=== PATIENT | female | born 1985 | race Two or more races ===

== ENCOUNTER 2024-02-19 07:48 | Emergency (ER) | payer OTHER ==
[~2024-02-19] VITALS: Ht 154.9 cm; Wt 61.0 kg
[2024-02-19 08:04] VITALS: BP 113/56
--- NOTE | 2024-02-19 08:18 | ED.PDOC ---
SOB-HPI HPI Comments A 38 YEAR OLD FEMALE PRESENTS TO THE ED WITH CHIEF COMPLAINT OF SOB. PATIENT REPORTS THAT SHE HAS BEEN EXPERIENCING A LINGERING COUGH AND SORE THROAT FOR ABOUT A MONTH, HOWEVER, SHE HAD STARTED TO EXPERIENCE SOB EARLIER TODAY, FEELING LIKE SHE COULD NOT BREATH. PATIENT RELAYS THAT SHE HAS HISTORY OF ASTHMA AND USED HER ALBUTEROL INHALER WITH NO RELIEF. PATIENT DENIES ANY CHEST PAIN, FEVER, CHILLS, DIZZINESS, HEADACHE, OR N/V/D. Chief Complaint: Asthma Time Seen by MD: 08:13 Reviewed notes: Nurses Notes, Medications, Allergies Information Source: Patient Mode of Arrival: Ambulatory Severity: Moderate Timing: Hours Duration: Since onset Context: At Rest PE Risk Factors: None History of: Asthma Prehospital treatment: Breathing Tx Modifying Factors: Nothing Associated Signs and Symptoms: Cough, Nasal Congestion, Sore Throat If cough with SOB: Non-Productive Past Medical History PAST MEDICAL HISTORY: Asthma Surgical History: Denies all surgeries DOCK SUPERINTENDENT History: No Pertinent DOCK SUPERINTENDENT History Family History Family History: Reviewed,noncontributory to illness Social History Smoker: Non-Smoker Alcohol: Denies ETOH Use Drugs: Denies Drug Use Lives In: Home Constitutional: denies: chills, diaphoresis, fatigue, fever, malaise, sweats, weakness, others EENTM: reports: nose congestion, throat pain, throat swelling; denies: blurred vision, double vision, ear bleeding, ear discharge, ear drainage, ear pain, ear ringing, eye pain, eye redness, hearing loss, mouth pain, mouth swelling, nasal discharge, nose bleeding, nose pain, photophobia, tearing, voice changes, others Respiratory: reports: cough, shortness of breath, wheezing; denies: hemoptysis, orthopnea, SOB at rest, SOB with excertion, stridor, others Cardiovascular: denies: chest pain, dizzy spells, diaphoresis, Dyspnea on exertion, edema, irregular heart beat, left arm pain, lightheadedness, palpitations, PND, syncope, others Gastrointestinal: denies: abdomen distended, abdominal pain, blood streaked bowels, constipated, diarrhea, dysphagia, difficulty swallowing, hematemesis, melena, nausea, poor appetite, poor fluid intake, rectal bleeding, rectal pain, vomiting, others Genitourinary: denies: abnormal vagina bleeding, burning, dyspareunia, dysuria, flank pain, frequency, hematuria, incontinence, pain, , vagina discharge, urgency, others Neurological: denies: dizziness, fainting, headache, left sided numbness, left sided weakness, numbness, paresthesia, pre-existing deficit, right sided numbness, right sided weakness, seizure, speech problems, tingling, tremors, weakness, others Musculoskeletal: denies: back pain, gout, joint pain, joint swelling, muscle pain, muscle stiffness, neck pain, others Integumetry: denies: bruises, change in color, change in hair/nails, dryness, laceration, lesions, lumps, rash, wounds, others Allergic/Immunocompromised: denies: Difficulty Healing, Frequent Infections, Hives, Itching, others Hematologic/Lymphatic: denies: anemia, blood clots, easy bleeding, easy bruising, swollen glands, others Endocrine: denies: excessive hunger, excessive sweating, excessive thirst, excessive urination, flushing, intolerance to cold, intolerance to heat, unexplained weight gain, unexplained weight loss, others Psychiatric: denies: anxiety, bipolar disorder, depression, hopeless, panic disorder, schizophrenia, sleepless, suicidal, others All Other Systems: Reviewed and Negative Physical Exam General Appearance: No Apparent Distress, Normal HEENT: PERRL/EOMI, Pharyngeal Erythema (MILD REDNESS AND SWELLING ON PHARYNX, NO EXUDATES. ), TMs Normal Neck: Full Range of Motion, Non-Tender, Normal, Normal Inspection Respiratory: Chest Non-Tender, Expiration, No Accessory Muscle Use, No Respiratory Distress, Rhonchi, Wheezing Cardiovascular: No Edema, No JVD, No Murmur, No Gallop, Normal Peripheral Pulses, Regular Rate/Rhythm Breast Exam: Deferred Gastrointestinal: No Organomegaly, Non Tender, No Pulsatile Mass, Normal Bowel Sounds, Soft Genitalia: Deferred Pelvic: Deferred Rectal: Deferred Extremities: No calf tenderness, Normal capillary refill, Normal inspection, Normal range of motion, Non-tender, No pedal edema Musculoskeletal : Apperance: Normal Neurologic: Alert, repeater operator II-XII nml as Tested, No Motor Deficits, Normal Affect, Normal Mood, No Sensory Deficits Cerebellar Function: Normal Reflexes: Normal Skin: Dry, Normal Color, Warm Peripheral Pulses: 2+ carotid (R), 2+ carotid (L) Lymphatic: No Adenopathy Was a procedure done? Was a procedure done?: No Differential Dx Differential Diagnosis: Asthma, Bronchitis, Pneumonia, Sinusitis, Allergic Rhinitis, Pharyngitis X-Ray, Labs, Meds, VS Vital Signs Date Time Temp Pulse Resp B/P (MAP) Pulse Ox O2 Delivery O2 Flow Rate FiO2 02/19/24 10:30 20 95 Room Air* 0 21 02/19/24 10:06 100 16 95 02/19/24 08:43 20 97 Nasal Cannula* 2 28 02/19/24 08:10 16 98 Room Air* 0 21 02/19/24 08:04 99.0 78 20 113/56 (75) 96 Current Medications Medications (Trade) Dose Ordered Sig/[place] Route Start Time Stop Time Status Last Admin Albuterol (Ventolin Medneb) 5 mg ONCE ONCE NEB 02/19/24 08:15 02/19/24 08:16 DC 02/19/24 08:43 Ipratropium [place] (Atrovent Medneb) 1 mg ONCE ONCE NEB 02/19/24 08:15 02/19/24 08:16 DC 02/19/24 08:43 Ceftriaxone Sodium (Rocephin) 1,000 mg ONCE ONCE IM 02/19/24 08:15 02/19/24 08:16 DC 02/19/24 08:32 Methylprednisolone Sodium Succinate (Solu Medrol) 125 mg ONCE ONCE IM 02/19/24 08:15 02/19/24 08:16 DC 02/19/24 08:32 Albuterol (Ventolin Medneb) 2.5 mg ONCE ONCE NEB 02/19/24 10:15 02/19/24 10:16 DC 02/19/24 10:30 Ipratropium [place] (Atrovent Medneb) 0.5 mg ONCE ONCE NEB 02/19/24 10:15 02/19/24 10:16 DC 02/19/24 10:29 CHEST XR: PATIENT: LEDA URENA: [id number]: [id number] : 1985 LOC: ER ROOM / BED: / AGE / SEX: 38 / F ADM STATUS: REG ER SERVICE 1 ORDERING PHYSICIAN: SWETA MORGAN PROCEDURE(s): CXRP - CHEST PORTABLE REASON: COUGH ORDER NUMBER(s): [id number], ACCESSION NUMBER(s): [id number] CHEST RADIOGRAPH Indication: COUGH Technique: Single frontal view of the chest was obtained Comparison: None FINDINGS: Lines and Tubes: None Lungs: No focal consolidation. Pleura: No effusion. No pneumothorax. Cardiomediastinal contours: Unremarkable Bones: No acute osseous abnormality. IMPRESSION: 1. No acute cardiopulmonary disease. X-Ray, Labs, Meds, VS Comment EXTERNAL MEDICAL RECORDS REVIEWED: [NONE] INDEPENDENT HISTORIANS: [NONE] SOCIAL DETERMINANTS OF HEALTH: [NONE] LABS ORDERED: NONE REVIEWED AND INTERPRETED RESULTS: CHEST XR IMAGING ORDERED: CHEST XR TREATMENTS ORDERED: DUONEB BREATHING TXN, ROCEPHIN 1G IM, SOLU-MEDROL 125MG IM, PROCEDURES PERFORMED: NONE CRITICAL CARE TIME: NONE GIVEN THE HISTORY AND PRESENT ILLNESS OF THE PATIENT, AFTER REVIEWING LABS, IMAGING, AND COURSE OF TREATMENT ADMINISTERED DURING THEIR ED VISIT, THERE IS LOW SUSPICION FOR RED FLAG FINDINGS. BASED ON HISTORY OF PRESENT ILLNESS, AND PHYSICAL EXAM, PATIENT WILL BE DISCHARGED HOME. DISCUSSED PLAN FOR DISCHARGE HOME WITH RX []. MEDICATION WARNINGS GIVEN. SHARED DECISION MAKING: DISCUSSED WITH PATIENT THAT THEIR WORKUP WAS NORMAL. PATIENT INSTRUCTED TO FOLLOW UP WITH PRIMARY CARE PROVIDER IN 1-2 DAYS FOR RE-EV ALUATION OF SYMPTOMS. PATIENT VERBALIZES UNDERSTANDING TO RETURN TO ED FOR NEW OR WORSENING SYMPTOMS OR IF FOLLOW UP WITH PCP CANNOT BE OBTAINED. PATIENT FEELS COMFORTABLE GOING HOME AT THIS TIME. ALL QUESTIONS ADDRESSED AT TIME OF DISCHARGE. CHEST XR: INTERPRETED BY ME. NO ACUTE FINDINGS. NO PNEUMONIA. NO CONSOLIDATIONS. NO INFILTRATES. PENDING RADIOLOGIST REPORT. Time of 1ST Reevaluation: 09:13 Reevaluation 1ST: Improved Time of 2ND Reevaluation: 10:43 Reevaluation 2ND: Improved Patient Education/Counseling: Diagnosis, Treatment, Need For Follow Up Family Education/Counseling: Diagnosis, Treatment, Need For Follow Up Medical Screening: No EMC Exist At This Time Departure 1 Departure Time of Disposition: 10:43 Impression: Primary Impression: Acute asthma exacerbation Qualified Codes: J45.41 - Moderate persistent asthma with (acute) exacerbation Additional Impression: Acute pharyngitis Qualified Codes: J02.9 - Acute pharyngitis, unspecified Disposition: 01 HOME / SELF CARE / HOMELESS Condition: Stable Additional Instructions: FOLLOW-UP WITH PCP IN 1 TO 2 DAYS. TAKE MEDICATIONS PRESCRIBED. RETURN TO ED FOR ANY NEW OR WORSENING SYMPTOMS. e-Prescriptions Albuterol Sulfate (Ventolin) 2.5 Mg/0.5 Ml Nb 1 VIAL NEB Q6HR, #120 VIAL Prov: SWETA MORGAN 02/19/24 Albuterol Sulfate (Albuterol Sulfate Hfa) 108 Mcg/Act Aer 108 MCG IN TID, #120 AER Prov: SWETA MORGAN 02/19/24 Prednisone (Prednisone) 20 Mg Tab 60 MG PO DAILY, #18 MG Prov: SWETA MORGAN 02/19/24 Discharged With: Self, Relative Critical Care Note Critical Care Time?: No Stability Stability form required: No Heart Score Heart Score: Heart Score Response (Comments) Value History N/A 0 EKG N/A 0 Age N/A 0 Risk Factors N/A 0 Troponin N/A 0 Total 0 I personally scribed for SWETA MORGAN ([email or web address]) on 02/19/24 at 08:18. Electroni stacey submitted by Christiano Palencia ([email or web address]). I personally scribed for SWETA MORGAN ([email or web address]) on 02/19/24 at 08:28. Electronically submitted by Christiano Palencia ([email or web address]). I personally scribed for SWETA MORGAN ([email or web address]) on 02/19/24 at 09:08. Electronically submitted by Christiano Palencia ([email or web address]). SWETA MORGAN Feb 19, 2024 08:18
[2024-02-19] MEDS: cefTRIAXone SOD 1,000 MG VL IM ONE (08:32)
[2024-02-19] MEDS: methylPREDNISolone SOD SUCC 125 MG/2 ML VL IM ONE (08:32)
[2024-02-19] MEDS: ALBUTEROL SULF 2.5 MG/0.5ML(0.5%) NEB SOLN NEB ONE ×2 (08:43→10:30)
[2024-02-19] MEDS: IPRATROPIUM BROM 0.5 MG/2.5ML INH SOL NEB ONE ×2 (08:43→10:29)
--- NOTE | 2024-02-19 08:45 | DVH ---
CHEST RADIOGRAPH Indication: COUGH Technique: Single frontal view of the chest was obtained Comparison: None FINDINGS: Lines and Tubes: None Lungs: No focal consolidation. Pleura: No effusion. No pneumothorax. Cardiomediastinal contours: Unremarkable Bones: No acute osseous abnormality. IMPRESSION: 1. No acute cardiopulmonary disease.
[2024-02-19] MEDS ORDERED: ALBU108A5 IN (09:53)
[2024-02-19] MEDS ORDERED: PRED20TA2 PO (09:53)
[2024-02-19] MEDS ORDERED: ALB5IS NEB (10:42)
[2024-02-19 10:48] VITALS: PULSE 110; RESP 20; O2SAT 95
== END 2024-02-19 10:50 | disposition home or self-care (01) ==
LOC: ER 07:48
DX: J45.901 Unspecified asthma with (acute) exacerbation (principal); J02.9 Acute pharyngitis, unspecified
CPT/HCPCS: 71045; 94640; 96372; 99285; J0696; J2919